=== PATIENT | male | born 1950 | race Caucasian/White ===

== ENCOUNTER → 2023-04-01 | Outpatient (CLI) | payer OTHER ==
--- NOTE | 2023-04-01 13:12 | US ---
EXAMINATION TYPE: US arterial LE multi level DATE OF EXAM: 04/01/2023 10:56 AM CLINICAL INDICATION: Male, 72 years old with history of M79.669 PAIN IN UNSPECIFIED LOWER; Pain in lesli th legs in the morning per patient. History of: Smoker: No Hypertension: Yes Diabetic: No Hyperlipidemia: Yes TIA/CVA: No Previous Vascular Surgery: No CAD: No [place]: No Vascular Ulcers: No Claudication: No Gangrene: No Doppler Waveforms: Right: Multiphasic Left: Multiphasic Ankle-Brachial Indices: Right: 0.96 Left: 1.17 Toe Brachial Indices: Right: 0.64 Left: 0.79 IMPRESSION: 1. Normal left DEBBIE DEBBIE indices 2. Borderline normal right DEBBIE and TBI. No significant atherosclerotic disease present.
== END | disposition home or self-care (01) ==
LOC: RADUSWWP 10:05
DX: M79.661 Pain in right lower leg (principal)
CPT/HCPCS: 93923